=== PATIENT | female | born 1970 | race Caucasian/White ===

== ENCOUNTER → 2020-09-04 09:06 | Outpatient (CLI) | payer OTHER, SELFPAY ==
--- NOTE | ~2020-09-04 | MR_ITS ---
EXAMINATION: MR knee LT wo con DATE: 09/04/2020 09:51 INDICATION: Left knee pain TECHNIQUE: Magnetic resonance imaging (MRI) of the left knee was performed without intravenous contra st. Sequences included coronal PD-weighted FSE, coronal PD-weighted FS FSE, sagittal T2-weighted FSE , sagittal PD-weighted FS FSE and axial PD weighted fat saturated FSE. COMPARISON: None. FINDINGS: Medial compartment: Medial meniscus is normal. Articular cartilage is normal. Lateral compartment: Lateral meniscus is normal. Articular cartilage is normal. Patellofemoral compartment: Partial-thickness cartilage loss along the cephalad aspect of the patella with deep chondral fissurin g at the more caudal apical ridge and medial facet. Small osteophyte with mild marrow edema along the medial margin of the medial facet. There is deep chondral ulceration with additional cortical irregu larity and osteophyte formation at the medial side of the medial trochlea. Less severe partial thickn ess chondral ulceration along the more lateral aspect of the medial trochlea and at the inferior aspe ct of the trochlear groove. Ligaments and tendons: Anterior and posterior cruciate ligaments are normal. The medial collateral ligament and fibular lynnette ateral ligament complex are normal. The extensor mechanism is normal. The visualized medial and later al hamstring tendons as well as the iliotibial band are normal. Fluid: Physiologic amount of fluid in the joint space. No loose osteochondral bodies identified. Mild edema anterior to the patellar tendon. Osseous/other: Bone alignment is normal. No fracture or abnormal marrow replacing process. IMPRESSION: 1. Mild patellofemoral osteoarthritis with regions of moderate to high-grade chondromalacia in the me dial patellofemoral compartment. Reviewed, dictated and finalized at location A. [employer] IMPRESSION: 1. Mild patellofemoral osteoarthritis with regions of moderate to high-grade ch ondromalacia in the medial patellofemoral compartment.
== END ==
PROVIDERS: Visit Provider Orthopaedic Surgery
DX: M17.12 Unilateral primary osteoarthritis, left knee (principal)
CPT/HCPCS: 73721

== ENCOUNTER → 2020-09-26 01:04 | Outpatient (CLI) | payer OTHER, SELFPAY ==
[2020-09-26 19:48] LABS: SARS-CoV-2 RNA PCR Negative
== END ==
PROVIDERS: Visit Provider Orthopaedic Surgery
DX: Z01.812 Encounter for preprocedural laboratory examination (principal); Z20.822 Contact with and (suspected) exposure to COVID-19
CPT/HCPCS: C9803; U0003; U0005

== ENCOUNTER 2020-09-30 01:07 | Day surgery (SDC) | payer OTHER, SELFPAY ==
[2020-09-23 14:03] VITALS: BMI 29.2
--- NOTE | 2020-09-29 12:24 | WPDANESEPPF ---
Anes - Initial Pre Proc Eval Procedure: Operation Date: 09/30/20 12:00 Proposed Procedures p Left Knee Arthroscopy For Chondroplasty - Alexandre Bland MD Date/Time: 09/29/20 12:24 Surgeon: Alexandre Bland MD Pre Op Diagnosis: Left Knee Patella Femoral Chondromalasia Patient Data Age: 50 Gender: F Height: 1.52 m Weight: 68 kg Allergies Allergy/AdvReac Type Severity Reaction Status Date / Time Penicillins Allergy Mild Rash Verified 09/30/20 10:58 morphine AdvReac Severe Nausea Verified 09/30/20 10:58 Home Medications Medication Instructions Recorded Confirmed Type alprazolam 0.5 mg tablet 0.5 mg PO DAILY 08/24/20 09/30/20 History desvenlafaxine succinate 100 mg 100 mg PO DAILY 08/24/20 09/30/20 History tablet,extended release 24 hr hydrochlorothiazide 25 mg tablet 25 mg PO DAILY 08/24/20 09/30/20 History zolpidem 12.5 mg tablet,extended 12.5 mg PO ONCE 08/24/20 09/30/20 History release,multiphase Aspirin Low Dose 81 mg PO DAILY 09/23/20 09/30/20 History cholecalciferol (vitamin D3) 1 tab-cap PO DAILY 09/23/20 09/30/20 History vitamin F72-[id number] acid 81 mg PO DAILY 09/23/20 09/23/20 History phentermine 30 mg PO DAILY 09/30/20 09/30/20 History Patient hx anesthesia problems: post op nausea/vomiting Family hx anesthesia problems: none PMFSH Past Medical History Medical History (Updated 09/29/20 @ 12:25 by Telly Alcaraz DO) Anxiety Chondromalacia of knee Chronic headaches Left knee pain Light headedness Osteoarthritis PONV (postoperative nausea and vomiting) Surgical History Surgical History (Updated 09/29/20 @ 12:25 by Telly Alcaraz DO) History of cholecystectomy History of hand surgery Right small finger trigger release (2) 2018 Dr. Dill Right thumb trigger release 2019 Dr. Dill History of hysterectomy History of tonsillectomy History of tubal ligation Family History Family History Mother TIA (transient ischemic attack) Arthritis Sibling Melanoma Other Diabetes mellitus Family history of cardiovascular disease Heart disease Hypertension Social History Social History Smoking status: Never smoker Alcohol intake: current Drinks per week: 3 Alcohol use details: 2/month Substance use: never Substance use type: does not use Gender identity (if verbalized by the patient): Female Spiritual care concerns: No Anes - Eval Final PreProcedure Day of Procedure 09/29/20 12:24 Patient weight: overweight Heart: regular rate and rhythm Lungs: clear to auscultation and normal air movement Airway: Mallampati scale class II Neurological: alert and oriented Last oral intake: >/= 8 hours ASA classification: II Emergent: no Anesthetic plan: proceed Anesthesia type and monitoring: general LMA and standard monitoring Informed Consent: The patient's anesthetic plan and its attendant risks and benefits were discussed with the patient/family/POA. Questions were solicited and answers provided to the satisfaction of the patient/family/POA.
[2020-09-30] VITALS (8 sets, daily range): BP systolic 116–150; BP diastolic 76–95; PULSE 57–85; RESP 11–20; TEMP 36.3–36.7; O2SAT 95–100
--- NOTE | 2020-09-30 08:06 | WPDHPUPDATE1 ---
History and Physical Update Update Date/Time: 09/30/20 08:06 History and Physical has been reviewed, including an updated exam of the patient. There are NO changes in the patient's condition. Risks, benefits, and alternatives have been discussed and questions answered. Patient agrees to proceed with procedure.
[2020-09-30] MEDS: CELECOXIB 200 MG CAPSULE PO (11:09)
[2020-09-30] MEDS: ACETAMINOPHEN 500 MG TABLET 1000 MG PO (11:09)
[2020-09-30] MEDS: LACTATED RINGERS 1,000 ML 30 ML IV CONT ×2 (11:23→14:15)
--- NOTE | 2020-09-30 12:15 | SUR.PREOP ---
Discussed delay with patient and her son. Voiced understanding.
[2020-09-30] MEDS: SCOPOLAMINE 1.5 MG PATCH TRANSDERM (12:44)
[2020-09-30] MEDS: FAMOTIDINE 20 MG/2 ML VIAL IV PUSH (12:44)
[2020-09-30] MEDS: CLINDAMYCIN 900 MG/D5W 50 ML 900 MG/50 ML PIGGYBACK 50 MG IVPB (13:17)
[2020-09-30] MEDS: BUPIVACAINE HCL 0.5% PF 30 ML VIAL INFILTRATE (13:49)
--- NOTE | 2020-09-30 14:19 | PM.PROC ---
Procedure Note - Detailed Date of procedure: 09/30/20 Pre-op diagnosis: Left Knee Patella Femoral Chondromalasia Post-op diagnosis: other (LEFT medial meniscus tear) Procedure performed: LEFT KNEE SCOPE WITH PARTIAL MEDIAL MENISCECTOMY AND AND CHONDROPLASTY AND MAJOR SYNOVECTOMY Description of procedure: PATIENT WAS TAKEN TO THE OR. LEFT LEG WAS PREPPED AND DRAPED STERILE. TROCARS WERE PLACED IN THE USUAL FASHION. CAMERA WAS INTRODUCED. THERE WAS SEVERE CHONDROMALACIA TO THE PATELLA FEMORAL JOINT. THERE WAS A LOT OF SYNOVITIS IN ALL COMPARTMENTS. THE MEDIAL COMPARTMENT SHOWED CHONDROMALACIA TO THE MED FEMORAL CONDYLE. A SHAVER WAS USED TO PREFORM A CHONDROPLASTY. THERE WAS A SMALL COMPLEX MEDIAL MENISCUS TEAR. THE TEAR WAS RESECTED WITH A BITER AND A SHAVER DOWN TO A SMOOTH BASE. ABOUT 10% OF THE MENISCUS WAS REMOVED. THE ACL WAS INTACT. THE LATERAL MENISCUS WAS NOT TORN. THE LATERAL COMPARTMENT HAD NO CHONDROMALACIA. A SYNOVECTOMY WAS PREFORMED. THE PATELLO FEMORAL JOINT UNDERWENT CHONDROPLASTY. SYNOVECTOMY WAS PREFORMED IN THE SUPERIOR MEDIAL COMPARTMENT. THE WOUNDS WERE APPROXIMATED WITH 4.0 NYLON. STERILE DRESSING WAS APPLIED. PATIENT WAS EXTUBATED. Anesthesia: GLMA Surgeon: Alexandre Bland MD Estimated blood loss (mL): 5 Complications: No immediate complications Condition: stable Disposition: PACU
--- NOTE | 2020-09-30 16:10 | SUR.PHASEII ---
1610- Call to Dr. Bland patient reported her knee popped when putting on her boots to discharge home and experienced some pain. Per Dr. Bland this is expected with the procedure done. Dr. Bland spoke with Heidy dietrich on phone with further instructions.
== END 2020-09-30 16:15 | disposition home or self-care (01) ==
PROVIDERS: Visit Provider Orthopaedic Surgery
PROC: (CPT 29870; principal; 2020-09-30 12:00)
DX: M23.332 Other meniscus derangements, other medial meniscus, left knee (principal); M94.262 Chondromalacia, left knee; M65.862 Other synovitis and tenosynovitis, left lower leg; F41.9 Anxiety disorder, unspecified; Z79.82 Long term (current) use of aspirin
CPT/HCPCS: 29881; 29876; A9270; C9803; J1100; J2250; J2405; J2704; J3010; J7120; U0003; U0005

== ENCOUNTER 2021-06-18 12:23 | Outpatient (CLI) | payer OTHER, SELFPAY ==
[2021-06-18 13:16] LABS: Anion Gap 8 mmol/L (8-16); Blood Urea Nitrogen 17 mg/dL (7-17); Calcium 9.7 mg/dL (8.4-10.2); Carbon Dioxide 31 mmol/L (22-30); Chloride 101 mmol/L (98-107); Estimated Glomerular Filt Rate > 60; Glucose 99 mg/dL (65-110); Potassium 3.9 mmol/L (3.4-5.0); Sodium 140 mmol/L (137-145)
== END 2021-06-18 12:24 | disposition home or self-care (01) ==
LOC: ANHLAB 12:27
PROVIDERS: Visit Provider Orthopaedic Surgery
DX: Z01.812 Encounter for preprocedural laboratory examination (principal)
CPT/HCPCS: 36415; 80048

== ENCOUNTER 2021-06-23 00:57 | Day surgery (SDC) | payer OTHER, SELFPAY ==
--- NOTE | 2021-06-16 14:02 | PC.NURSE ---
Report to the Outpatient Waiting Room, entrance under the green pavilion located off [facility], at time 1130_ on date 06/23/21__. OR Time: _1330_. - You and your visitor will be asked a series of questions to screen for COVID 19 for your protection. - A mask is required within the hospital. - Only one visitor is allowed at this time. Patient visitors will be guided where to wait when not with patient. Preoperative COVID Testing Requirements: No COVID Test needed if: (proof is required; if not received patient will have Rapid Test prior to entry) - Patient has received COVID Vaccine at least 14 days prior to procedure date or - Patient has positive COVID test result within last 90 days of surgery date. COVID Test needed if above criteria is not met If not COVID vaccinated a COVID test must be conducted within 72 hours of surgery and patient is asked to isolate self from time of testing until procedure. You will go to the [facility] for your COVID testing. The [facility] [facility] Testing site is located at the corner of [address] [facility]. You will only be called if COVID results are positive and your surgeon may reschedule your elective surgery date. Patients may have clear liquids (water, carbonated beverages, clear teas, apple juice) until 3 hours prior to surgery with a maximum of 20 ounces. - No food from midnight until time of surgery - Infants may have breast milk until 4 hours before surgery, formula 6 hours prior to surgery. - Children will be allowed to drink immediately following surgery. If applicable, please bring a bottle or sippy cup to assist with drinking. Juice, water, soda, and popsicles are readily available. For infants on formula, please bring formula the day of surgery. Pacifiers are allowed. Take the following medications with a SIP of water the morning of surgery: XANAX, PEPCID___ Medications to discontinue per physician __VITAMINS AND ASPIRIN, PT HAS NOT BEEN TAKING Date to take last dose Please no make-up, nail nigerien, hairspray, perfume, deodorant, or body powder the day of surgery. No jewelry (including any body piercings) or valuables the day of surgery, leave them at home. Please take a shower or bath the night before, or the morning of, surgery with an antibacterial soap. Wear comfortable, loose fitting clothing. Children are encouraged to wear pajamas. - Jewelry must be removed prior to entering the operating room. Rings and piercings that are not removed may be cut off. - The hospital will not accept responsibility for valuables. - Please leave all valuables, including medications, at home the day of surgery. If you are going home after surgery, a licensed student truck driver must drive you home. - NO public transportation without another adult. - We recommend that an adult stay with you for 24 hours following discharge. - We also recommend that you do not drive, make important decision, drink alcoholic beverages, or take any drugs that were not prescribed by your health care provider for at least 24 hours after your discharge time. For Pediatric surgeries, we recommend two adults accompany the child home (only one inside the building at this time). Follow any additional instructions given to you from your surgeon. Telephone instructions given to _PATIENT-CAROL_and asked if any additional questions and then verbalized understanding. Patient advised to call surgeon office or pre surgery nurse liaison [phone] if any additional questions.
[2021-06-23] VITALS (10 sets, daily range): BP systolic 115–128; BP diastolic 65–81; PULSE 65–80; RESP 14–20; TEMP 36.1–36.6; O2SAT 92–100; BMI 28.0
--- NOTE | 2021-06-23 07:16 | WPDHPUPDATE1 ---
History and Physical Update Update Date/Time: 06/23/21 07:16 History and Physical has been reviewed, including an updated exam of the patient. There are NO changes in the patient's condition. Risks, benefits, and alternatives have been discussed and questions answered. Patient agrees to proceed with procedure.
--- NOTE | 2021-06-23 08:42 | WPDANESEPPF ---
Anes - Initial Pre Proc Eval Procedure: Operation Date: 06/23/21 10:30 Proposed Procedures p Left Knee Arthroscopy, Proceed As Indicated - Alexandre Bland MD Date/Time: 06/23/21 08:42 Surgeon: Alexandre Bland MD Pre Op Diagnosis: left knee medial meniscus tear Patient Data Age: 51 Gender: F Height: Weight: Allergies Allergy/AdvReac Type Severity Reaction Status Date / Time Penicillins Allergy Mild Rash Verified 06/23/21 09:24 morphine AdvReac Severe Nausea Verified 06/23/21 09:24 Home Medications Medication Instructions Recorded Confirmed Type alprazolam 0.5 mg tablet 0.5 mg PO TID PRN 08/24/20 06/23/21 History desvenlafaxine succinate 100 mg 100 mg PO DAILY 08/24/20 06/23/21 History tablet,extended release 24 hr hydrochlorothiazide 25 mg tablet 25 mg PO DAILY 08/24/20 06/23/21 History zolpidem 12.5 mg tablet,extended 12.5 mg PO ONCE 08/24/20 06/23/21 History release,multiphase Aspirin Low Dose 81 mg PO DAILY 09/23/20 06/23/21 History cholecalciferol (vitamin D3) 1 tab-cap PO DAILY 09/23/20 06/23/21 History vitamin E93-enlfn acid 81 mg PO DAILY 09/23/20 06/23/21 History phentermine 30 mg PO DAILY 09/30/20 06/23/21 History chlorhexidine gluconate 4 % 1 applic TOPICAL ONCE #237 ml 06/14/21 06/16/21 Rx topical liquid diclofenac sodium 4 g TOPICAL PRN PRN 06/16/21 06/16/21 History famotidine [Pepcid AC] 10 mg PO DAILY PRN 06/16/21 06/23/21 History Patient hx anesthesia problems: none Family hx anesthesia problems: none Results Review: All pre-operative results and documents have been reviewed as part of the pre-operative evaluation. [facility] Past Medical History Medical History (Updated 06/23/21 @ 08:44 by Antonio Smith MD) Anxiety Chondromalacia of knee Chronic headaches Left knee pain Light headedness Obesity Osteoarthritis PONV (postoperative nausea and vomiting) Surgical History Surgical History History of cholecystectomy History of hand surgery Right small finger trigger release (2) 2018 Dr. Dill Right thumb trigger release 2019 Dr. Dill History of hysterectomy History of tonsillectomy History of tubal ligation Family History Family History Mother TIA (transient ischemic attack) Arthritis Sibling Melanoma Other Diabetes mellitus Family history of cardiovascular disease Heart disease Hypertension Social History Social History (Updated 05/24/21 @ 15:45 by Charissa Alfonso MA) Smoking status: Never smoker Alcohol intake: current Drinks per week: 2 Alcohol use details: 2/month Substance use: never Substance use type: does not use Living arrangements: alone Gender identity (if verbalized by the patient): Female Spiritual care concerns: No Anes - Eval Final PreProcedure Day of Procedure 06/23/21 08:42 Patient weight: overweight Heart: regular rate and rhythm Lungs: clear to auscultation and normal air movement Airway: Mallampati scale class II Neurological: alert and oriented Last oral intake: >/= 8 hours ASA classification: II Emergent: no Anesthetic plan: proceed Anesthesia type and monitoring: general LMA Results Review: All pre-operative results and documents have been reviewed as part of the pre-operative evaluation. Informed Consent: The patient's anesthetic plan and its attendant risks and benefits were discussed with the patient/family/POA. Questions were solicited and answers provided to the satisfaction of the patient/family/POA.
[2021-06-23] MEDS: CELECOXIB 200 MG CAPSULE PO (09:29)
[2021-06-23] MEDS: ACETAMINOPHEN 500 MG TABLET 1000 MG PO (09:29)
[2021-06-23] MEDS: LACTATED RINGERS 1,000 ML 30 ML IV CONT ×2 (09:51→12:01)
[2021-06-23] MEDS: ceFAZolin 2 GM/D5W 50 ML 2 GM/50 ML BAG IVPB (10:30)
--- NOTE | 2021-06-23 10:36 | SUR.PREOP ---
Patient has crutches in the car and says knows how to use them.
[2021-06-23] MEDS: BUPIVACAINE HCL 0.5% PF 30 ML VIAL INFILTRATE (10:55)
--- NOTE | 2021-06-23 11:59 | W.PM.PROC2 ---
Procedure Note - Detailed Date of Procedure 06/23/21 Pre-op Diagnosis left knee medial meniscus tear Post-op Diagnosis same Procedure Performed LEFT KNEE SCOPE Surgeon Alexandre Bland MD Anesthesia general Description of Procedure PATIENT WAS TAKEN TO THE OR SUITE. THE LEFT LEG WAS PREPPED AND DRAPED STERILE. TROCARS WERE PLACED IN THE USUAL FASHION. CAMERA WAS INTRODUCED. THERE WAS CHONDROMALACIA TO THE PATELLA FEMORAL JOINT. THERE WAS A LOT OF SYNOVITIS IN ALL COMPARTMENTS. THE MEDIAL COMPARTMENT SHOWED CHONDROMALACIA TO THE MEDIAL FEMORAL CONDYLE. A SHAVER WAS USED TO PREFORM A CHONDROPLASTY. THERE WAS A RECURRENT MEDIAL MENISCUS TEAR. THE TEAR WAS RESECTED WITH A BITER AND A SHAVER DOWN TO A STABLE BASE. THE ACL WAS INTACT. THE LATERAL MENISCUS WAS NOT TORN. THE LAT COMPARTMENT HAD NO CHONDROMALACIA. THE PATELLO FEMORAL JOINT UNDERWENT CHONDROPLASTY. THERE WAS GRADE 2 CHONDROMALACIA IN PART OF THE TROCHLEA AND PART OF THE PATELLA. MINIMAL SYNOVECTOMY WAS PREFORMED IN THE SUPERIOR MEDIAL COMPARTMENT. THE WOUNDS WERE APPROXIMATED WITH 4.0 NYLON. STERILE DRESSING WAS APPLIED. PATIENT WAS EXTUBATED. Estimated Blood Loss 5 Complications No immediate complications Condition stable Disposition PACU
== END 2021-06-23 14:00 | disposition home or self-care (01) ==
PROVIDERS: Visit Provider Orthopaedic Surgery
PROC: (CPT 29870; principal; 2021-06-23 10:30)
DX: S83.282A Other tear of lateral meniscus, current injury, left knee, initial encounter (principal); M65.862 Other synovitis and tenosynovitis, left lower leg; M94.262 Chondromalacia, left knee; X50.0XXA Overexertion from strenuous movement or load, initial encounter; F41.9 Anxiety disorder, unspecified
CPT/HCPCS: 29881; 36415; 80048; A9270; J0690; J1100; J1630; J2250; J2270; J2370; J2405; J3010; J7120

== ENCOUNTER 2022-06-15 07:01 | Outpatient (CLI) | payer OTHER, SELFPAY ==
--- NOTE | ~2022-06-15 | MR_ITS ---
EXAMINATION: MR knee LT wo con DATE: 06/15/2022 07:37 INDICATION: Left knee pain TECHNIQUE: Magnetic resonance imaging (MRI) of the left knee was performed without intravenous contra st. Sequences included coronal PD-weighted FSE, coronal PD-weighted FS FSE, sagittal T2-weighted FSE , sagittal PD-weighted FS FSE and axial PD weighted fat saturated FSE. COMPARISON: None. FINDINGS: Medial compartment: Complex medial meniscal tear extending from the anterior to the posterior horn. There is medial extru yimi of the diminutive medial meniscal body suggesting displacement or secondary degeneration of the meniscal tissue. There is deep chondral ulceration with chondral surface regularity along the medial tibial plateau and anterior weightbearing medial femoral condyle. There is moderate cystlike change a long the lateral margin of the anterior weightbearing medial femoral condyle and small region of suba rticular edema-like signal change immediately along both the anterior weightbearing medial femoral co ndyle and medial tibial plateau. Less severe partial thickness cartilage loss with smooth or surface along the posterior weightbearing medial femoral condyle. Lateral compartment: Lateral meniscus is normal. Partial-thickness cartilage loss with smooth chondral surface along the p osterior weightbearing lateral femoral condyle. Patellofemoral compartment: Central subchondral osteophyte at the site of deep chondral ulceration at the medial side of the medi al tibial plateau. There is partial thickness cartilage loss involving at least 50% the cartilage thi ckness at the bilateral medial patellar facet extending to the apical ridge. Additional deep chondral ulceration and fissuring without degenerative subchondral changes at the inferior aspect of the medi al trochlea and trochlear groove. Partial-thickness cartilage loss with smooth chondral surface at th e lateral trochlea. Small to moderate-sized marginal osteophytes are present. Ligaments and tendons: Anterior and posterior cruciate ligaments are normal. The medial collateral ligament and fibular lynnette ateral ligament complex are normal. The extensor mechanism is normal. The visualized medial and later al hamstring tendons as well as the iliotibial band are normal. Fluid: Small left knee joint effusion with suprapatellar plical band and mild synovitis at the suprapatellar pouch. No loose osteochondral bodies identified. Osseous/other: Normal marrow signal. No fracture or pathologic marrow replacing process. IMPRESSION: 1. Complex medial meniscal tear. 2. Tricompartmental osteoarthritis, moderate severity in the medial and mild in the patellofemoral co mpartments, both with moderate to high-grade chondromalacia and minimal in the lateral compartment. Reviewed, dictated and finalized at location B. IMPRESSION: 1. Complex medial meniscal tear. 2. Tricompartmental osteoarthritis, moderate severity in the medial and mild in the patellofemoral compartments, both with moderate to high-grade chondromalac ia and minimal in the lateral compartment.
--- NOTE | ~2022-06-15 | MR_ITS ---
EXAMINATION: MR knee RT wo con DATE: 06/15/2022 08:29 INDICATION: Right knee pain TECHNIQUE: Magnetic resonance imaging (MRI) of the right knee was performed without intravenous contr ast. Sequences included coronal PD-weighted FSE, coronal PD-weighted FS FSE, sagittal T2-weighted FS E, sagittal PD-weighted FS FSE and axial PD weighted fat saturated FSE. COMPARISON: None. FINDINGS: Medial compartment: Medial meniscus is normal. Shallow chondral ulceration along the anterior weightbearing medial femora l condyle. Lateral compartment: Lateral meniscus is normal. Partial-thickness chondral fissuring without degenerative subchondral marianna nges at the central aspect of the lateral tibial plateau. Patellofemoral compartment: Central subchondral osteophyte at the site of deep chondral ulceration at the central aspect of the m edial patellar facet. Additional chondral ulceration and deep partial-thickness chondral fissuring wi th a couple foci of underlying subarticular edema-like signal change at the patellar apical ridge. Le ss severe partial thickness chondral fissuring without degenerative subchondral changes at the latera l patellar facet. Ligaments and tendons: Anterior and posterior cruciate ligaments are normal. The medial and fibular collateral ligaments are normal. The extensor mechanism is normal. The visualized medial and lateral hamstring tendons as wel l as the iliotibial band are normal. Fluid: Physiologic amount of fluid in the joint space. No loose osteochondral bodies identified. Osseous/other: Bone alignment is normal. Large low signal intensity sclerotic bone island at the posterior medial me taphyseal region of the distal femur. No fracture or pathologic marrow replacing process. Edema at th e superficial suprapatellar fat pad consistent with fat pad impingement syndrome. IMPRESSION: 1. Mild tricompartmental osteoarthritis with high-grade patellar chondromalacia and moderate grade ch ondromalacia along the lateral tibial plateau and anterior weightbearing medial femoral condyle. 2. Edema in the superficial suprapatellar fat pad which can be seen with fat pad impingement syndrome . Reviewed, dictated and finalized at location B. IMPRESSION: 1. Mild tricompartmental osteoarthritis with high-grade patellar chondromalacia and moderate grade chondromalacia along the lateral tibial plateau and anterio r weightbearing medial femoral condyle. 2. Edema in the superficial suprapatellar fat pad which can be seen with fat pa d impingement syndrome.
== END 2022-06-15 07:02 ==
LOC: MICIMG 07:03
PROVIDERS: PCP Orthopaedic Surgery; Visit Provider Orthopaedic Surgery
DX: M17.0 Bilateral primary osteoarthritis of knee (principal); S83.232A Complex tear of medial meniscus, current injury, left knee, initial encounter; X58.XXXA Exposure to other specified factors, initial encounter
CPT/HCPCS: 73721

== ENCOUNTER 2022-06-24 00:53 | Day surgery (SDC) | payer OTHER, SELFPAY ==
[2022-06-20 12:48] VITALS: BMI 27.3
--- NOTE | 2022-06-20 12:55 | PC.NURSE ---
Report to the Outpatient Waiting Room, entrance under the green pavilion located off [facility], at time 0830 on date 06/24/22. Planned Procedure Time: 1030. Time changes happen often and if your time is changed the preop area will call you the afternoon before. - You and your visitor will be asked to self-screen and do not enter if you have any COVID symptoms. - We encourage only one visitor and NO visitors under age 16 are allowed at this time. Your visitor will receive communication by the phone number that is given day of service. - The patient visitor is requested to social distance or may leave the building when not with patient due to restrictions. - A mask is required within the hospital. Patients may have clear liquids (water, carbonated beverages, clear teas, apple juice) until 3 hours prior to surgery with a maximum of 20 ounces. - No food from midnight until time of surgery Take the following medications with a SIP of water the morning of surgery: PRISTIQ, XANAX IF NEEDED Medications to discontinue per physician: N/A Date to take last dose: N/A Please no make-up, nail indonesian, hairspray, perfume, deodorant, or body powder the day of surgery. No jewelry (including any body piercings) or valuables the day of surgery, leave them at home. Please take a shower or bath the night before, or the morning of, surgery with an antibacterial soap. Wear comfortable, loose fitting clothing. - Jewelry must be removed prior to entering the operating room. Rings and piercings that are not removed may be cut off. - The hospital will not accept responsibility for valuables. - Please leave all valuables, including medications, at home the day of surgery. If you are going home after surgery, a licensed equipment driver must drive you home. - NO public transportation without another adult. - We recommend that an adult stay with you for 24 hours following discharge. - We also recommend that you do not drive, make important decision, drink alcoholic beverages, or take any drugs that were not prescribed by your health care provider for at least 24 hours after your discharge time. Follow any additional instructions given to you from your surgeon. If you or anyone in your household have experienced Covid symptoms in the past week, please notify your surgeon or the nurse liaison at the phone number below for possible testing. Telephone instructions given to PT - JEREMÍAS SHAH and asked if any additional questions and then verbalized understanding. Patient advised to call surgeon office or pre surgery nurse liaison [phone] if any additional questions.;
[2022-06-24] VITALS (9 sets, daily range): BP systolic 93–121; BP diastolic 52–70; PULSE 79–84; RESP 14–20; TEMP 36.2–37.2; O2SAT 96–99
--- NOTE | 2022-06-24 07:17 | WPDHPUPDATE1 ---
History and Physical Update Update Date/Time: 06/24/22 07:17 History and Physical has been reviewed, including an updated exam of the patient. There are NO changes in the patient's condition. Risks, benefits, and alternatives have been discussed and questions answered. Patient agrees to proceed with procedure.
[2022-06-24] MEDS: ACETAMINOPHEN 500 MG TABLET 1000 MG PO (08:38)
[2022-06-24] MEDS: CELECOXIB 200 MG CAPSULE PO (08:39)
[2022-06-24] MEDS: LACTATED RINGERS 1,000 ML 30 ML IV CONT ×2 (08:55→11:47)
--- NOTE | 2022-06-24 09:04 | SUR.PREOP ---
pt states has crutches at home and aware how to use.
[2022-06-24 09:15] LABS: Anion Gap 8 mmol/L (8-16); Blood Urea Nitrogen 18 mg/dL (7-17); Calcium 8.7 mg/dL (8.4-10.2); Carbon Dioxide 24 mmol/L (22-30); Chloride 104 mmol/L (98-107); Estimated CRCL calculation 67 ml/min; Estimated Glomerular Filt Rate > 60; Glucose 104 mg/dL (65-110); Potassium 4.2 mmol/L (3.4-5.0); Sodium 136 mmol/L (137-145)
--- NOTE | 2022-06-24 09:59 | PM.IMHP ---
H&P: HPI History of Present Illness Date/Time: 06/24/22 09:59 Chief Complaint: LEFT KNEE PAIN AND INSTABILITY RIGHT KNEE PAIN Narrative: JEREMÍAS IS HERE FOR LEFT KNEE SCOPE FOR RECURRENT MEDIAL MENISCUS TEAR AND RIGHT KNEE CHONDROMALACIA AND MILD DJD. SHE WILL UNDERGO LEFT KNEE SCOPE AND RIGHT KNEE INJECTION. Review of Systems Review of Systems: All systems reviewed & are unremarkable except as noted in HPI and below PMFSH Past Medical History Medical History Anxiety Chondromalacia of knee Chronic headaches Left knee pain Light headedness Obesity Osteoarthritis PONV (postoperative nausea and vomiting) Right knee pain Surgical History Surgical History History of cholecystectomy History of hand surgery Right small finger trigger release (2) 2018 Dr. Dill Right thumb trigger release 2019 Dr. Dill History of hysterectomy History of tonsillectomy History of tubal ligation Family History Family History Mother TIA (transient ischemic attack) Arthritis Sibling Melanoma Other Diabetes mellitus Family history of cardiovascular disease Heart disease Hypertension Social History Social History Smoking status: Never smoker Alcohol intake: current Drinks per week: 2 Alcohol use details: OCCASIONAL Substance use: never Substance use type: does not use Living arrangements: alone Gender identity (if verbalized by the patient): Female Spiritual care concerns: No Meds Home Medications and Allergies Home Medications Medication Instructions Recorded Confirmed Type alprazolam 0.5 mg tablet (Xanax) 0.5 mg PO TID PRN Anxiety 08/24/20 06/24/22 History desvenlafaxine succinate 100 mg 100 mg PO DAILY 08/24/20 06/24/22 History tablet,extended release 24 hr (Pristiq) hydrochlorothiazide 25 mg tablet 25 mg PO DAILY 08/24/20 06/24/22 History zolpidem 12.5 mg tablet,extended 12.5 mg PO ONCE 08/24/20 06/24/22 History release,multiphase (Ambien CR) phentermine 30 mg capsule 30 mg PO DAILY 09/30/20 06/24/22 History famotidine 10 mg tablet (Pepcid AC) 10 mg PO DAILY PRN Acid Reflux 06/16/21 06/24/22 History Allergies Allergy/AdvReac Type Severity Reaction Status Date / Time Penicillins Allergy Mild Rash Verified 06/24/22 08:33 morphine AdvReac Severe Nausea Verified 06/24/22 08:33 Vital Signs Vital Signs - 24 hr 06/24/22 08:12 Temperature 36.2 C L Pulse Rate 81 Respiratory Rate 16 Blood Pressure 121/64 Pulse Oximetry 98 Oxygen Delivery Room Air Exam Const: General: cooperative, healthy appearing, comfortable and no acute distress HENMT: Head: normal to inspection Ears: hearing grossly normal bilaterally Eyes: General: appearance normal, both eyes and all related structures Visual Davenport: normal visual davenport by confrontation Alignment and Position: alignment normal Neck: Neck: normal visual inspection and full ROM Chest: Chest palpation & inspection: normal inspection of the chest Resp: Auscultation: clear to auscultation bilaterally Cardio: Rate: regular rate Rhythm: regular rhythm Heart sounds: S1 normal heart sound present and S2 normal heart sound present Neuro: General: oriented to person, oriented to place, oriented to time, patient oriented x3, gait normal and moves all extremities Extrem: Right lower extremity: normal to inspection and knee Details: normal to inspection, tenderness, swelling, abnormal ROM and Matt's Test Details: positive medially Left lower extremity: knee Details: normal to inspection, tenderness, swelling, abnormal ROM, knee ligament exam normal, Matt's Test Details: positive medially and laterally and crepitus; no lacerations, no ecchymosis, no deformity and no unusual warmth, lower leg Details: normal to in
--- NOTE | 2022-06-24 10:12 | WPDANESEPPF ---
Anes - Initial Pre Proc Eval Procedure: Operation Date: 06/24/22 10:30 Proposed Procedures p Left Knee Arthroscopy, Proceed As Indicated, Right Knee Cortisone Injection - Alexandre Bland MD Date/Time: 06/24/22 10:12 Surgeon: Alexandre Bland MD Pre Op Diagnosis: left knee recur medial meniscal tear, rt knee DJD Patient Data Age: 52 Gender: F Height: 1.52 m Weight: 65 kg Last Vital Signs Temp 36.2 C L 06/24/22 08:12 Pulse 81 06/24/22 08:12 Resp 16 06/24/22 08:12 BP 121/64 06/24/22 08:12 Pulse Ox 98 06/24/22 08:12 O2 Del Method Room Air 06/24/22 08:12 Allergies Allergy/AdvReac Type Severity Reaction Status Date / Time Penicillins Allergy Mild Rash Verified 06/24/22 08:33 morphine AdvReac Severe Nausea Verified 06/24/22 08:33 Home Medications Medication Instructions Recorded Confirmed Type alprazolam 0.5 mg tablet (Xanax) 0.5 mg PO TID PRN Anxiety 08/24/20 06/24/22 History desvenlafaxine succinate 100 mg 100 mg PO DAILY 08/24/20 06/24/22 History tablet,extended release 24 hr (Pristiq) hydrochlorothiazide 25 mg tablet 25 mg PO DAILY 08/24/20 06/24/22 History zolpidem 12.5 mg tablet,extended 12.5 mg PO ONCE 08/24/20 06/24/22 History release,multiphase (Ambien CR) phentermine 30 mg capsule 30 mg PO DAILY 09/30/20 06/24/22 History famotidine 10 mg tablet (Pepcid AC) 10 mg PO DAILY PRN Acid Reflux 06/16/21 06/24/22 History Laboratory Tests 06/24/22 08:30 Sodium 136 mmol/L L mmol/L (137-145) Potassium 4.2 mmol/L mmol/L (3.4-5.0) Chloride 104 mmol/L mmol/L (98-107) Carbon Dioxide 24 mmol/L mmol/L (22-30) Anion Gap 8 mmol/L mmol/L (8-16) BUN 18 mg/dL H mg/dL (7-17) Creatinine 0.70 mg/dL mg/dL (0.7-1.0) Estim Creat Clear Calc 67 ml/min ml/min Estimated GFR > 60 (59 - ) Glucose 104 mg/dL mg/dL (65-110) Calcium 8.7 mg/dL mg/dL (8.4-10.2) Patient hx anesthesia problems: post op nausea/vomiting Family hx anesthesia problems: none Results Review: All pre-operative results and documents have been reviewed as part of the pre-operative evaluation. [facility] [place] Past Medical History Medical History Anxiety Chondromalacia of knee Chronic headaches Left knee pain Light headedness Obesity Osteoarthritis PONV (postoperative nausea and vomiting) Right knee pain Surgical History Surgical History History of cholecystectomy History of hand surgery Right small finger trigger release (2) 2018 Dr. Dill Right thumb trigger release 2019 Dr. Dill History of hysterectomy History of tonsillectomy History of tubal ligation Family History Family History Mother TIA (transient ischemic attack) Arthritis Sibling Melanoma Other Diabetes mellitus Family history of cardiovascular disease Heart disease Hypertension Social History Social History Smoking status: Never smoker Alcohol intake: current Drinks per week: 2 Alcohol use details: OCCASIONAL Substance use: never Substance use type: does not use Living arrangements: alone Gender identity (if verbalized by the patient): Female Spiritual care concerns: No Anes - Eval Final PreProcedure Day of Procedure 06/24/22 10:12 Patient weight: overweight Heart: regular rate and rhythm Lungs: clear to auscultation Airway: Mallampati scale class II Neurological: alert and oriented Last oral intake: >/= 8 hours ASA classification: II Emergent: no Anesthetic plan: proceed Anesthesia type and monitoring: general LMA and standard monitoring Results Review: All pre-operative results and documents have been reviewed as part of the pre-operative evaluation. Informed Consent: The patient's anesthetic plan and its
[2022-06-24] MEDS: SCOPOLAMINE 1.5 MG PATCH TRANSDERM (10:17)
[2022-06-24] MEDS: ceFAZolin 2 GM/D5W 50 ML 2 GM/50 ML BAG IVPB (10:23)
[2022-06-24] MEDS: methylPREDNISolone ACETATE 80 MG/ML VIAL IM (10:40)
--- NOTE | 2022-06-24 12:09 | W.PM.PROC2 ---
Procedure Note - Detailed Date of Procedure 06/24/22 Pre-op Diagnosis left knee recurrent medial meniscal tear, rt knee DJD Post-op Diagnosis Same Procedure Performed LEFT KNEE SCOPE, RIGHT KNEE INJECTION Surgeon Alexandre Bland MD Anesthesia General Description of Procedure PATIENT WAS TAKEN TO THE OR. THE LEFT LEG WAS PREPPED AND DRAPED STERILE. TROCARS WERE PLACED IN THE USUAL FASHION. CAMERA WAS INTRODUCED. THERE WAS CHONDROMALACIA TO THE PATELLA FEMORAL JOINT. THERE WAS A LOT OF SYNOVITIS IN ALL COMPARTMENTS. THE MEDIAL COMPARTMENT SHOWED CHONDROMALACIA TO THE MEDIAL FEMORAL CONDYLE. A SHAVER WAS USED TO PREFORM A CHONDROPLASTY. THERE WAS A RECURRENT COMPLEX MEDIAL MENISCUS TEAR. THE TEAR WAS RESECTED WITH A BITER AND A SHAVER DOWN TO A SMOOTH BASE. THERE WAS A FULL THICKNESS DEFECT ON THE MEDIAL PLATEAU. IT MEASURED ROUGHLY 5 MM. THE ACL WAS INTACT. THE LATERAL MENISCUS WAS NOT TORN. THE LAT COMPARTMENT HAD MINIMAL CHONDROMALACIA. CHONDROPLASTY WAS PREFORMED. A SYNOVECTOMY WAS PREFORMED WELL. THE PATELLO FEMORAL JOINT UNDERWENT CHONDROPLASTY. THERE WAS GRADE 2 CHONDROMALACIA IN PART OF THE TROCHLEA AND PART OF THE PATELLA. SYNOVECTOMY WAS PREFORMED IN THE SUPERIOR MEDIAL COMPARTMENT. THE WOUNDS WERE APPROXIMATED WITH 4.0 NYLON. STERILE DRESSING WAS APPLIED. NEXT AFTER A STERILE PREP THE RIGHT KNEE WAS INJECTED WITH DEPO MEDROL 80 MG 1 CC AND MARCAINE 0.5% 5 CC. PATIENT WAS EXTUBATED AND SENT TO RECOVERY ROOM. Estimated Blood Loss 5 Complications No immediate complications Condition Stable Disposition PACU
[2022-06-24] MEDS: oxyCODONE HCL (*CRX) 5 MG TAB IR PO (13:12)
== END 2022-06-24 14:14 | disposition home or self-care (01) ==
PROVIDERS: Anesthesiology; Visit Provider Orthopaedic Surgery
PROC: (CPT 29870; principal; 2022-06-24 10:30)
DX: M23.312 Other meniscus derangements, anterior horn of medial meniscus, left knee (principal); M17.11 Unilateral primary osteoarthritis, right knee; M22.42 Chondromalacia patellae, left knee; M22.41 Chondromalacia patellae, right knee; M65.862 Other synovitis and tenosynovitis, left lower leg; F41.9 Anxiety disorder, unspecified
CPT/HCPCS: 29881; 20610; 36415; 80048; A9270; J0690; J1040; J1100; J2250; J2405; J2704; J3010; J7120

== ENCOUNTER 2023-06-23 08:57 | Outpatient (CLI) | payer OTHER, SELFPAY ==
--- NOTE | ~2023-06-23 | MR_ITS ---
MRI of the right knee Clinical history: Pain Technique: Coronal proton density and proton density-weighted images, sagittal proton-density and T2 fat-sat images, and axial proton-density fat-saturated images were acquired. COMPARISON: 06/15/2022 Findings: Anterior and posterior cruciate ligaments are intact. Medial collateral ligament and the la teral collateral ligament conflux are intact. Popliteus tendon is intact. Questionable subtle horizontal tear of the anterior horn of the medial meniscus, with an apparent 1.9 x 0.9 cm anterior para-meniscal cyst (series 5 image 8, series 7 image 18). No lateral meniscal tear seen. There is mild chondromalacia the medial and lateral joint lines. There is mild to moderate chondral m alacia at the inferior femoral trochlea. There is high-grade chondromalacia the patellar apex extendi ng to the medial patellar facet. Tiny osteophytes are present. Extensor mechanism is intact. No significant joint effusion or Naranjo's cyst. Persistent edematous marianna nge of the quadriceps fat pad. Impression: Possible subtle horizontal tear of the anterior horn the medial meniscus, with 1.9 x 0.9 cm para-meni scal cyst. Overall mild degenerative change of the knee, as detailed above. Persistent edematous change of the quadriceps fat pad, which could be related to impingement. Reviewed, dictated and finalized at location [facility] [employer] [facility] [employer] Impression: Possible subtle horizontal tear of the anterior horn the medial meniscus, with 1.9 x 0.9 cm para-meniscal cyst. Overall mild degenerative change of the knee, as detailed above. Persistent edematous change of the quadriceps fat pad, which could be related t o impingement.
== END 2023-06-23 08:58 ==
PROVIDERS: PCP Orthopaedic Surgery
DX: M25.561 Pain in right knee (principal)
CPT/HCPCS: 73721

== ENCOUNTER 2023-07-24 11:47 | Outpatient (CLI) | payer OTHER, SELFPAY ==
[2023-07-24 12:39] LABS: Anion Gap 6 mmol/L (8-16); Blood Urea Nitrogen 18 mg/dL (7-17); Carbon Dioxide 28 mmol/L (22-30); Chloride 105 mmol/L (98-107); Estimated Glomerular Filt Rate > 60; Glucose 83 mg/dL (65-110); Potassium 3.8 mmol/L (3.4-5.0); Sodium 139 mmol/L (137-145)
== END 2023-07-24 11:48 | disposition home or self-care (01) ==
PROVIDERS: Anesthesiology; Visit Provider Orthopaedic Surgery
DX: Z79.899 Other long term (current) drug therapy (principal); Z01.818 Encounter for other preprocedural examination
CPT/HCPCS: 36415; 80048

== ENCOUNTER 2023-07-25 01:04 | Day surgery (SDC) | payer OTHER, SELFPAY ==
[2023-07-21 15:25] VITALS: BMI 25.2
--- NOTE | 2023-07-21 15:47 | PC.NURSE ---
Report to the Outpatient Waiting Room, entrance under the green pavilion located off [facility], at 0600 on date 07/25/23. Planned Procedure Time: 0730. Time changes happen often and if your time is changed the preop area will call you the afternoon before. - You and your visitor will be asked to self-screen and do not enter if you have any COVID symptoms. - A mask is optional within the hospital at this time. Patients may have clear liquids (water, carbonated beverages, clear teas, apple juice) until 3 hours prior to surgery with a maximum of 20 ounces. - No food from midnight until time of surgery Take the following medications with a SIP of water the morning of surgery: Desvenlafaxine and if needed, Alprazolam DO NOT STOP ANY OF YOUR OTHER PRESCRIPTION MEDICATIONS PRIOR TO SURGERY ?EXCEPT THE FOLLOWING Medications to discontinue per physician N/A Date to take last dose N/A Please no make-up, nail latvian, hairspray, perfume, deodorant, or body powder the day of surgery. No jewelry (including any body piercings) or valuables the day of surgery, leave them at home. Please take a shower or bath the night before, or the morning of, surgery with an antibacterial soap (Hibiclens/Chlorahexidine. Wear comfortable, loose fitting clothing. - Jewelry must be removed prior to entering the operating room. Rings and piercings that are not removed may be cut off. - The hospital will not accept responsibility for valuables. - Please leave all valuables, including medications, at home the day of surgery. If you are going home after surgery, a licensed jitney driver must drive you home. - NO public transportation without another adult if you receive anesthesia. - We recommend that an adult stay with you for 24 hours following discharge. - We also recommend that you do not drive, make important decision, drink alcoholic beverages, or take any drugs that were not prescribed by your health care provider for at least 24 hours after your discharge time. Follow any additional instructions given to you from your surgeon. If you or anyone in your household have experienced Covid symptoms in the past week, please notify your surgeon or the nurse liaison at the phone number below for possible testing. Telephone instructions given to patient and asked if any additional questions and then verbalized understanding. Patient advised to call surgeon office or pre surgery nurse liaison [phone] if any additional questions.
[2023-07-25] VITALS (9 sets, daily range): BP systolic 87–121; BP diastolic 37–77; PULSE 57–75; RESP 12–18; TEMP 36.2–36.5; O2SAT 95–100
[2023-07-25] MEDS: ACETAMINOPHEN 500 MG TABLET 1000 MG PO (07:07)
[2023-07-25] MEDS: CELECOXIB 200 MG CAPSULE PO (07:07)
--- NOTE | 2023-07-25 07:07 | WPDANESEPPF ---
Anes - Initial Pre Proc Eval Procedure: Operation Date: 07/25/23 07:30 Proposed Procedures p Right Knee Arthroscopy - Alexandre Bland MD Date/Time: 07/25/23 07:07 Surgeon: Alexandre Bland MD Pre Op Diagnosis: right knee medial meniscal tear/ parameniscal cyst Patient Data Age: 53 Gender: F Height: 1.52 m Weight: 59.9 kg Allergies Allergy/AdvReac Type Severity Reaction Status Date / Time Penicillins Allergy Mild Rash Verified 07/25/23 07:02 morphine AdvReac Severe Nausea Verified 07/25/23 07:02 Home Medications Medication Instructions Recorded Confirmed Type alprazolam 0.5 mg tablet (Xanax) 0.5 mg PO TID PRN Anxiety 08/24/20 07/25/23 History desvenlafaxine succinate 100 mg 100 mg PO DAILY 08/24/20 07/25/23 History tablet,extended release 24 hr (Pristiq) hydrochlorothiazide 25 mg tablet 25 mg PO DAILY 08/24/20 07/25/23 History zolpidem 12.5 mg tablet,extended 12.5 mg PO ONCE 08/24/20 07/25/23 History release,multiphase (Ambien CR) famotidine 10 mg tablet (Pepcid AC) 10 mg PO DAILY PRN Acid Reflux 06/16/21 07/25/23 History ondansetron 4 mg disintegrating 4 mg PO Q6-8H PRN Nausea 07/21/23 07/25/23 History tablet Patient hx anesthesia problems: post op nausea/vomiting Family hx anesthesia problems: none Results Review: All pre-operative results and documents have been reviewed as part of the pre-operative evaluation. [facility] Past Medical History Medical History Anxiety Chondromalacia of knee Chronic headaches Degenerative joint disease of knee Left knee pain Light headedness Obesity Osteoarthritis Pes anserine bursitis PONV (postoperative nausea and vomiting) Right knee pain Surgical History Surgical History History of cholecystectomy History of hand surgery Right small finger trigger release (2) 2018 Dr. Dill Right thumb trigger release 2019 Dr. Dill History of hysterectomy History of tonsillectomy History of tubal ligation Family History Family History Mother TIA (transient ischemic attack) Arthritis Sibling Melanoma Other Diabetes mellitus Family history of cardiovascular disease Heart disease Hypertension Social History Social History Smoking status: Never smoker Second hand tobacco smoke exposure: No Alcohol intake: former Drinks per week: 2 Alcohol use details: >1 yr ago Substance use: never Substance use type: does not use Living arrangements: with family Gender identity (if verbalized by the patient): Female Spiritual care concerns: No Anes - Eval Final PreProcedure Day of Procedure 07/25/23 07:07 Patient weight: normal Heart: regular rate and rhythm Lungs: clear to auscultation Airway: Mallampati scale class II Neurological: alert and oriented Last oral intake: >/= 8 hours ASA classification: II Emergent: no Anesthetic plan: proceed Anesthesia type and monitoring: general LMA and standard monitoring Results Review: All pre-operative results and documents have been reviewed as part of the pre-operative evaluation. Informed Consent: The patient's anesthetic plan and its attendant risks and benefits were discussed with the patient/family/POA. Questions were solicited and answers provided to the satisfaction of the patient/family/POA.
[2023-07-25] MEDS: LACTATED RINGERS 1,000 ML 30 ML IV CONT ×2 (07:15→09:03)
--- NOTE | 2023-07-25 07:15 | WPDHPUPDATE1 ---
History and Physical Update Update Date/Time: 07/25/23 07:15 History and Physical has been reviewed, including an updated exam of the patient. There are NO changes in the patient's condition. Risks, benefits, and alternatives have been discussed and questions answered. Patient agrees to proceed with procedure.
[2023-07-25] MEDS: SCOPOLAMINE 1.5 MG PATCH TRANSDERM (07:17)
[2023-07-25] MEDS: ceFAZolin 2 GM/D5W 50 ML 2 GM/50 ML BAG IVPB (07:30)
[2023-07-25] MEDS: BUPivacaine HCL 0.5% 10 ML AMP 30 ML INFILTRATE (08:19)
--- NOTE | 2023-07-25 09:03 | W.PM.PROC2 ---
Procedure Note - Detailed Date of Procedure 07/25/23 Pre-op Diagnosis right knee medial meniscal tear/ parameniscal cyst Post-op Diagnosis Same Procedure Performed RIGHT KNEE SCOPE Surgeon Alexandre Bland MD Anesthesia General Description of Procedure PATIENT WAS TAKEN TO THE OR. THE RIGHT LEG WAS PREPPED AND DRAPED STERILE. TROCARS WERE PLACED IN THE USUAL FASHION. CAMERA WAS INTRODUCED. THERE WAS CHONDROMALACIA TO THE PATELLA FEMORAL JOINT. THERE WAS A LOT OF SYNOVITIS IN ALL COMPARTMENTS. THE MEDIAL COMPARTMENT SHOWED CHONDROMALACIA TO THE MEDIAL FEMORAL CONDYLE. THERE WAS A GRADE 2/3 LESION ON THE MAIN WEIGHT BEARING SURFACE. A SHAVER WAS USED TO PREFORM A CHONDROPLASTY. THERE WAS A COMPLEX MEDIAL MENISCUS TEAR AT THE POSTERIOR HORN AND IT WAS RESECTED TO A SMOOTH BASE. THERE WAS A SUPERFICIAL TEAR OF THE ANTERIOR HORN OF THE MEDIAL MENISCUS THAT DID NOT REACH THE ARTICULAR SURFACE. THE TEAR WAS DEBRIDED TO A SMOOTH SURFACE. A MENISCAL CYST WAS NOT IDENTIFIED. THE ACL WAS INTACT. THE LATERAL MENISCUS WAS NOT TORN. THE LAT COMPARTMENT HAD MINIMAL CHONDROMALACIA. A SYNOVECTOMY WAS PREFORMED DUE TO IMPINGING SYNOVIUM. THE PATELLO FEMORAL JOINT UNDERWENT CHONDROPLASTY. THERE WAS GRADE 2 CHONDROMALACIA IN PART OF THE TROCHLEA AND PART OF THE PATELLA. SYNOVECTOMY WAS PREFORMED IN THE SUPERIOR MEDIAL COMPARTMENT. THE WOUNDS WERE APPROXIMATED WITH 4.0 NYLON. STERILE DRESSING WAS APPLIED. PATIENT WAS EXTUBATED. Estimated Blood Loss 5 Complications No immediate complications Condition Stable Disposition PACU
== END 2023-07-25 11:00 | disposition home or self-care (01) ==
PROVIDERS: Visit Provider Orthopaedic Surgery
PROC: (CPT 29870; principal; 2023-07-25 07:30)
DX: M23.311 Other meniscus derangements, anterior horn of medial meniscus, right knee (principal); M23.321 Other meniscus derangements, posterior horn of medial meniscus, right knee; M65.9 Synovitis and tenosynovitis, unspecified; M22.41 Chondromalacia patellae, right knee; F41.9 Anxiety disorder, unspecified
CPT/HCPCS: 29881; 29876; 36415; 80048; A9270; J0690; J1100; J1170; J1200; J2250; J2371; J2405; J2704; J3010; J7120

== ENCOUNTER 2023-10-27 10:35 | Outpatient (CLI) | payer OTHER, SELFPAY ==
--- NOTE | ~2023-10-27 | MR_ITS ---
MRI of the left knee Clinical history: Arthritis Technique: Coronal proton density and proton density-weighted images, sagittal proton-density and T2 fat-sat images, and axial proton-density fat-saturated images were acquired. COMPARISON: 06/15/2022 Findings: Anterior and posterior cruciate ligaments are intact. Medial collateral ligament and the la teral collateral ligament complex are intact. Popliteus tendon is intact. Anterior horn and body of medial meniscus are again essentially completely absent. Tearing extends in to the posterior horn of the medial meniscus. No definite lateral meniscal tear seen. Diffuse grade IV chondromalacia on both sides of the medial compartment with probable medial compartm ent narrowing is present. There is reactive subchondral marrow edema in the medial femoral condyle, a nd to a lesser extent, the medial tibial plateau. Articular cartilage in the lateral and patellofemor al compartment is better preserved. There are osteophytes at the intercondylar notch, medial lateral joint line, and patella. Extensor mechanism is intact. Small joint effusion present. No Naranjo's cyst. Impression: Stable extensive complex tearing throughout the medial meniscus, with the anterior midbody nearly com pletely absent and/or macerated. Tricompartmental degenerative change is similar to prior exam, moderate to severe in the medial rosa rtment, mild in the lateral patellofemoral compartment. Small joint effusion. Reviewed, dictated and finalized at [facility]. Impression: Stable extensive complex tearing throughout the medial meniscus, with the anter ior midbody nearly completely absent and/or macerated. Tricompartmental degenerative change is similar to prior exam, moderate to obi re in the medial compartment, mild in the lateral patellofemoral compartment. Small joint effusion.
== END 2023-10-27 10:36 | disposition home or self-care (01) ==
LOC: ANHIMG 10:38
PROVIDERS: Visit Provider Nurse Practitioner Family
DX: M17.12 Unilateral primary osteoarthritis, left knee (principal); M25.462 Effusion, left knee
CPT/HCPCS: 73721